=== PATIENT | male | born 1950 | race Caucasian/White ===

== ENCOUNTER 2025-08-28 07:13 | Day surgery (SDC) | payer MEDICARE, OTHER ==
[2025-08-22 14:55] LABS: MEAN PLATELET VOLUME 7.4 FL (7.4-10.4); PRE OP HEMATOCRIT 41.6 % (42.0-52.0); PRE OP HEMOGLOBIN 14.2 g/dL (14.0-17.9); PRE OP PLATELET COUNT 247 X10'3 (140-440); PRE OP WHITE BLOOD COUNT 7.0 10'3 (4.8-10.8); RED CELL DISTRIBUTION WIDTH 13.5 % (11.5-14.5)
[2025-08-22 15:09] LABS: CREATININE 0.87 MG/DL (0.60-1.10); PRE OP ALT 21 U/L (30-65); PRE OP ANION GAP 4 (8-16); PRE OP AST 20 U/L (10-37); PRE OP BILIRUB, TOTAL 0.4 MG/DL (0.0-1.0); PRE OP GLUCOSE 87 MG/DL (70-104); PRE OP POTASSIUM 4.3 MMOL/L (3.4-5.1); PRE OP SODIUM 140 MMOL/L (135-145); TOTAL CARBON DIOXIDE 31.2 MMOL/L (24-32); eGFR 85 ML/MIN
--- NOTE | 2025-08-22 15:11 | ELECTROCARDIOGRAPH REPORT ---
[facility] Test Date: 2025-08-22 Test Time: 16:09:25 Pat Name: JENNIE LEIGH Department: [facility]-PRE-OP Patient ID: [facility]-[id number] Room: Gender: M Reconciliation Manager: BALAJI : [id number] Requested By: JAMEL CRUMP Order Number: [id number] Reading MD: Dr. Faith Taylor Measurements Intervals [place] Rate: 73 P: 22 [place]: 134 QRS: 60 QRSD: 98 T: 58 QT: 364 QTc: 401 Interpretive Statements Sinus rhythm Electronically Signed On 08-23-2025 7:00:[address] Faith Taylor Please click the below link to view image of tracing.
[~2025-08-28] VITALS: Ht 180.3 cm; Wt 98.1 kg
[2025-08-28] VITALS (9 sets, daily range): BP systolic 130–156; BP diastolic 67–76; PULSE 59–70; RESP 14–20; TEMP 98.1; O2SAT 96–98
[2025-08-28] MEDS: ceFAZolin 2gm/dext,iso 50mL 50 ML IV ONE (05:30)
[~2025-08-28 07:13] MED LIST: ALIR75PE5 SUBCUT; ASPI-1265 PO; BUPIVAcaine/PF 2.5mg/ml (0.25%) 10ml vial ONE; FEXO-404 PO; LANS30CA56 PO; LIDOcaine 2% (20mg/ml) 5ml vial ONE; LOSA-416 PO; SERT25TA PO
[2025-08-28] MEDS: ringers solution, lacted 1,000 ML IV SCH (08:07)
[2025-08-28] MEDS ORDERED: midazolam 1 mg/ML 2ml injection ONE (08:16)
[2025-08-28] MEDS ORDERED: fluoroscein sod 10% (100mg/ml) 5ml vial ONE (08:16)
[2025-08-28] MEDS ORDERED: fentaNYL/PF 50MCG/1 ML 2ML syringe ONE (08:16)
[2025-08-28] MEDS ORDERED: propofol 10mg/ml 20ml vial IV ONE (08:31)
[2025-08-28] MEDS: BUPIVAcaine/PF 2.5mg/ml (0.25%) 10ml vial IJ ONE (08:38)
--- NOTE | 2025-08-28 19:04 | OPERATIVE REPORT ---
Operative Report Providers to ~ Date of Procedure: Aug 28, 2025 Pre-Operative Diagnosis: Right carpal tunnel syndrome Post-Operative Diagnosis SAME as PRE-Op Procedure Performed Right wrist open carpal tunnel release Surgeon: Seth Gomez MD Toxicologist None Anesthesiologist: Melvin Trevino Type of Anesthesia: Other (Local anesthesia) Findings: Estimated Blood Loss: None Specimen Removed: None Description of Procedure: The patient is a 75-year-old man with carpal tunnel syndrome refractory to nonsurgical treatment. Surgery is indicated to relieve symptoms. Risks and benefits were discussed with the patient and he agreed to proceed. He was brought to the operating room where a time-out procedure was performed. The arm was prepped and draped in usual manner with a tourniquet on the forearm. Local anesthetic was infiltrated proximal to the wrist crease. A 3 cm incision was made in the palm ulnar to the thenar crease in line with the radial side of the ring finger through skin and palmar fascia. Blunt dissection was done to the transverse carpal ligament which was then opened in line with the skin incision. Distal release was done along with a proximal release into the forearm. The nerve was decompressed. The incision was irrigated and closed with nylon suture. Sterile dressing was applied and the tourniquet was released. The hand perfused well and he was taken to the recovery room in stable condition. SETH GOMEZ Jr., MD Aug 28, 2025 19:04
== END 2025-08-28 09:27 | disposition home or self-care (01) ==
LOC: PAS 07:13
PROVIDERS: ATTEND Orthopaedic Surgery Hand Surgery
DX: G56.03 Carpal tunnel syndrome, bilateral upper limbs (principal); F32.A Depression, unspecified; F41.9 Anxiety disorder, unspecified; I10 Essential (primary) hypertension; K21.9 Gastro-esophageal reflux disease without esophagitis; M86.9 Osteomyelitis, unspecified; R73.09 Other abnormal glucose; Z98.890 Other specified postprocedural states; Z79.82 Long term (current) use of aspirin; Z95.1 Presence of aortocoronary bypass graft
CPT/HCPCS: 36415; 64721; 80053; 82948; 85025; 93005; J2003; J2250; J2704; J3010; J3490; J7030; J7120; Z7506; Z7512; A4215; A6449